=== PATIENT | female | born 1990 | race Caucasian/White ===

== ENCOUNTER 2022-04-18 08:45 | Day surgery (SDC) | payer BC ==
[2022-04-16 13:15] VITALS: BMI 20.2
[2022-04-18 10:51] VITALS: RESP 18; TEMP 98
[2022-04-18 10:53] VITALS: BP 100/62; PULSE 76
== END 2022-04-18 10:53 | disposition home or self-care (01) ==
LOC: FASU-ENDO 08:45
PROVIDERS: ATTEND Internal Medicine Gastroenterology
PROC: 0DJD8ZZ Inspection of Lower Intestinal Tract, Via Natural or Artificial Opening Endoscopic (ICD-10-PCS; principal; 2022-04-18 09:52)
DX: Z12.11 Encounter for screening for malignant neoplasm of colon (principal); Z80.0 Family history of malignant neoplasm of digestive organs
CPT/HCPCS: 84703